=== PATIENT | female | born 1960 | race Caucasian/White ===

== ENCOUNTER → 2017-04-09 | Outpatient (CLI) | payer OTHER ==
[~2017-04-09] MED LIST: CITRACAL + D M1 EACH PO; Cipro500 MG PO; FISH OIL 1,2001 EACH PO; Flagyl500 MG PO; GEMF600 PO; GLIM4 PO; INSDET100 SC; Janumet 50-1,01 EACH PO; LORA1 PO; Norco 5-325 Ta1 EACH PO; OXYACE5T PO; PARO20 PO
== END | disposition home or self-care (01) ==
LOC: LAB SRC 09:12
DX: N39.0 Urinary tract infection, site not specified (principal)
CPT/HCPCS: 87086

== ENCOUNTER → 2020-10-16 | Outpatient (CLI) | payer OTHER ==
[2020-10-17 13:10] LABS: HPV 16 Negative (Negative); HPV 18 Negative (Negative); HPV OTHER HR TYPES Negative (Negative)
== END | disposition home or self-care (01) ==
LOC: LAB 11:51 → LAB SHORT 11:51
PROVIDERS: Family Medicine
DX: Z12.4 Encounter for screening for malignant neoplasm of cervix (principal)
CPT/HCPCS: 87624; G0123

== ENCOUNTER 2024-01-20 06:36 | Day surgery (SDC) | payer MEDICARE ==
[~2024-01-20] VITALS: Ht 167.6 cm; Wt 70.0 kg
[2024-01-20] MEDS ORDERED: ASPI81CH (07:02)
[2024-01-20] MEDS ORDERED: ATOR40TA (07:02)
[2024-01-20] MEDS ORDERED: DEXCOM G7 RECE1 EACH (07:03)
[2024-01-20] MEDS ORDERED: ESCI10 (07:03)
[2024-01-20] MEDS ORDERED: FARXIGA10 MG (07:03)
[2024-01-20] MEDS ORDERED: Lisinopril2.5 MG (07:04)
[2024-01-20] MEDS ORDERED: BASAGLAR K100 UNIT/1 (07:04)
[2024-01-20] MEDS ORDERED: Lidocaine HCl/Pf 1% 5 ML VIAL ONE (07:22)
[2024-01-20] MEDS ORDERED: Lidocaine 2% 5 ML SDV ONE (07:22)
[2024-01-20] MEDS ORDERED: Methylene Blue 1% 100 MG/10 ML VIAL ONE (07:22)
[2024-01-20] MEDS ORDERED: ePHEDrine Sulfate 50 MG/ML 1ML Injection ONE (07:31)
[2024-01-20] MEDS ORDERED: Glycopyrrolate 0.2 MG/ML 1MLVIAL ONE (07:31)
[2024-01-20] MEDS ORDERED: Ondansetron HCl 2 MG / ML 2ML Vial ONE (07:31)
[2024-01-20] MEDS ORDERED: Lactated Ringer's 1,000 ML IV ONE ×2 (07:31→07:42)
[2024-01-20] MEDS ORDERED: Atropine Sulfate 0.1 MG/ML 10ML SYR ONE (07:31)
[2024-01-20] MEDS ORDERED: propofoL 50 ML IV ONE (07:34)
[2024-01-20 09:04] VITALS: BP 111/56
== END 2024-01-20 09:04 | disposition home or self-care (01) ==
LOC: ORSCSDS 06:36
PROVIDERS: Surgery
PROC: 0DBM8ZX Excision of Descending Colon, Via Natural or Artificial Opening Endoscopic, Diagnostic (ICD-10-PCS; principal; 2024-01-20 08:00)
DX: Z12.11 Encounter for screening for malignant neoplasm of colon (principal); D12.4 Benign neoplasm of descending colon; K57.30 Diverticulosis of large intestine without perforation or abscess without bleeding; K58.9 Irritable bowel syndrome, unspecified; G47.33 Obstructive sleep apnea (adult) (pediatric); E78.5 Hyperlipidemia, unspecified; E11.9 Type 2 diabetes mellitus without complications; F17.210 Nicotine dependence, cigarettes, uncomplicated; Z79.82 Long term (current) use of aspirin; Z79.899 Other long term (current) drug therapy
CPT/HCPCS: 82947; 88305; J0461; J2003; J2405; J2704; J7120; Q9968